=== PATIENT | male | born 1990 | race African-American/Black ===

== ENCOUNTER 2016-04-18 11:10 | Emergency (ER) | payer SELFPAY ==
[~2016-04-18] VITALS: Ht 180.3 cm; Wt 81.2 kg
[~2016-04-18 11:10] MED LIST: HYDR-971 PO; IBUP-1060 PO
[2016-04-18] MEDS ORDERED: RANI300T3 PO (12:25)
[2016-04-18] MEDS ORDERED: ONDA4TAB7 PO (12:25)
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
[2016-04-18] MEDS ORDERED: PANTOPRAZOLE 40 MG TABLET. PO ONE (12:30)
[2016-04-18] MEDS ORDERED: LIDO:MAALOX:DONNATAL 1:1:1 15 ML SINGLE DOSE SWSW ONE (12:30)
[2016-04-18] MEDS ORDERED: ONDANSETRON ODT 4 MG TAB.RAPDIS PO ONE (12:30)
[2016-04-18 12:39] VITALS: BP 131/86
== END 2016-04-18 12:53 | disposition home or self-care (01) ==
LOC: ER 11:10
DX: K21.9 Gastro-esophageal reflux disease without esophagitis (principal); F17.200 Nicotine dependence, unspecified, uncomplicated; F12.10 Cannabis abuse, uncomplicated
CPT/HCPCS: 99284; Q0162

== ENCOUNTER 2016-08-30 14:37 | Emergency (ER) | payer SELFPAY ==
[~2016-08-30] VITALS: Ht 180.3 cm; Wt 82.1 kg
[~2016-08-30 14:37] MED LIST changes: +ONDA4TAB7 PO; +RANI300T3 PO
[2016-08-30 14:50] VITALS: BP 145/90
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
== END 2016-08-30 15:50 | disposition left against medical advice (07) ==
LOC: ER 14:37
DX: G89.29 Other chronic pain (principal); M79.671 Pain in right foot; F12.10 Cannabis abuse, uncomplicated; F17.200 Nicotine dependence, unspecified, uncomplicated; Z53.21 Procedure and treatment not carried out due to patient leaving prior to being seen by health care provider
CPT/HCPCS: 73630; 99281

== ENCOUNTER → 2018-02-15 20:02 | Emergency (ER) | payer SELFPAY ==
[~2018-02-15 20:02] MED LIST changes: +HYDR-3164 PO; -HYDR-971 PO
== END | disposition left against medical advice (07) ==
LOC: ER 20:02
DX: K08.89 Other specified disorders of teeth and supporting structures (principal); Z53.21 Procedure and treatment not carried out due to patient leaving prior to being seen by health care provider